=== PATIENT | female | born 2005 | race African-American/Black ===

== ENCOUNTER 2025-02-10 21:09 | Emergency (ER) | payer OTHER ==
[~2025-02-10] VITALS: Ht 162.6 cm; Wt 63.8 kg
[2025-02-10 21:20] VITALS: O2SAT 99
[2025-02-10] MEDS: LIDOCAINE HCL/EPINEPHRINE 1%-EPI 1:100,000 20ML VIAL INFIL ONE (22:00)
[2025-02-10] MEDS ORDERED: BACITRACIN ZINC OINT UDPKT TOP ONE (22:00)
[2025-02-10] MEDS: KETOROLAC 30MG/ML VIAL IM ONE (22:51)
[2025-02-10] MEDS: TETANUS, DIPHTHERIA, PERTUSSIS VAC/PF 0.5ML (>10YR OLD) IM ONE (22:51)
[2025-02-11 00:11] VITALS: BP 126/70; PULSE 88; RESP 16; TEMP 36.7; O2SAT 99
== END 2025-02-11 00:30 | disposition home or self-care (01) ==
LOC: EDSEX 21:09 → ER 21:09
DX: S91.312A Laceration without foreign body, left foot, initial encounter (principal); W45.8XXA Other foreign body or object entering through skin, initial encounter; Y93.89 Activity, other specified; Y92.89 Other specified places as the place of occurrence of the external cause; Y99.8 Other external cause status
CPT/HCPCS: 99284; 90715; 12002; 90471; 96372; J1885; J2004